=== PATIENT | female | born 1990 | race African-American/Black ===

== ENCOUNTER 2019-03-14 09:00 | Inpatient (IN) | payer BC, OTHER ==
[~2019-03-14 09:00] MED LIST: CITRIC ACID/SODIUM CITRATE 30 ML UNIT-DOSE CUP PO ONE; ELECTROLYTE-148 SOLN 1,000 ML IV SCH
[2019-03-14 09:51] LABS: BASO % 0.3 % (0-2.0); EOS % 0.8 % (0-4.5); HEMATOCRIT 31.7 % (32.4-45.2); HEMOGLOBIN 10.3 GM/dL (10.7-15.3); LYMPH % 23.5 % (8-40); MCH 26.8 pg (25.7-33.7); MCHC 32.6 g/dl (32.0-36.0); MEAN CELL VOLUME 82.1 fl (80-96); MEAN PLT VOLUME 8.6 fl (7.5-11.1); MONO % 6.4 % (3.8-10.2); RBC 3.86 M/mm3 (3.60-5.2); RDW 14.5 % (11.6-15.6)
[2019-03-14 09:59] VITALS: BMI 28.3
[2019-03-14 10:04] LABS: INR 0.97 (0.83-1.09); PROTHROMBIN TIME (PATIENT) 11.5 SEC (9.7-13.0)
[2019-03-14 10:07] LABS: ACTIVATED PTT 26.4 SECONDS (25.2-36.5)
[2019-03-14 10:25] LABS: BLOOD UREA NITROGEN 7.6 mg/dL (7-18); CALCIUM 9.1 mg/dL (8.5-10.1); CREATININE 0.5 mg/dL (0.55-1.3); POTASSIUM 4.1 mmol/L (3.5-5.1)
[2019-03-14 10:29] LABS: PLATELET COUNT 282 K/MM3 (134-434)
--- NOTE | 2019-03-14 10:45 | HP ---
Past Medical History - Admission History of Present Illness: 28 yo @ 37 3/7 wks by first trimester ultrasound, EDC 04/01/2019 complicated by: History of Myomectomy - for delivery between 37 to 38 6/7 wks by ACOG guidelines and MFM recommendation Patient presents for primary CD. She reports movement, denies leakage of fluid, vaginal bleeding or contractions. History Source: Patient Limitations to Obtaining History: No Limitations - Past Medical History Cardiovascular: No: HTN Pulmonary: No: Asthma ...: 4 ...Para: 0 ...Term: 0 ...: 0 ...Spon : 0 ...Induced : 3 ...Multiple Gestation: 0 ...EDC by Sono: 04/01/19 Heme/Onc: No: Anemia - Past Surgical History Hx Myomectomy: Yes Hx Transabdominal Cerclage: No - Smoking History Smoking history: Never smoked Have you smoked in the past 12 months: No - Alcohol/Substance Use Hx Alcohol Use: No History of Substance Use: reports: None - Social History History of Recent Travel: No Home Medications - Allergies Allergies/Adverse Reactions: Allergies Allergy/AdvReac Type Severity Reaction Status Date / Time No Known Drug Allergies Allergy Verified 03/14/19 10:08 - Home Medications Home Medications: Ambulatory Orders Vit/Iron Fum/Folic AC [ Tablet] 1 tab PO DAILY 03/14/19 Family Disease History - Family Disease History Family History: Denies Review of Systems - Review of Systems Constitutional: reports: No Symptoms Cardiovascular: reports: No Symptoms Respiratory: reports: No Symptoms Gastrointestinal: reports: No Symptoms Genitourinary: reports: No Symptoms Musculoskeletal: reports: No Symptoms Integumentary: reports: No Symptoms Neurological: reports: No Symptoms Endocrine: reports: No Symptoms Hematology/Lymphatic: reports: No Symptoms Physical Exam - Maternity Vital Signs: Vital Signs Temperature 98.3 F 03/14/19 09:00 Pulse Rate 86 03/14/19 09:00 Respiratory Rate 16 03/14/19 09:00 Blood Pressure 116/70 03/14/19 09:00 O2 Sat by Pulse Oximetry (%) Constitutional: Yes: Well Nourished, No Distress, Calm Cardiovascular: Yes: Regular Rate and Rhythm Lungs: Clear to auscultation - Abdominal Exam/OB Number of Fetuses: Single Presentation: Vertex Contractions: No Regularity: Regular Monitor Mode: External Category: I Accelerations: Non-Uniform - Vaginal Exam/OB Vaginal Bleediing: No - Physical Exam Psychiatric: Yes: Alert, Oriented - Labs Lab Results: CBC, BMP 03/14/19 09:31 03/14/19 09:31 PNL - O positive, antibody negative; RPR NR; HIV neg; HBs Ag neg; HCV neg; Hg Yanira AA; GCT 130; GBS neg; Sequential 1&2 WNL Hemorrhage Risk Assessment - Risk Factors Medium Risk Factors: Yes: Prior , uterine surgery,or multiple laparotomies High Risk Factors: Yes: None Risk Score: 1 Risk Level: Medium Risk Assessment/Plan 28 yo @ 37+ wks for primary CD 1. Admit to L&D Consents reviewed and signed. discussed risks including but not limited to infection, bleeding, damage to surrounding organs such as bowel, bladder; injury to . Reviewed importance of future childbearing, need to wait at least 1 year for next ; risk of placental attachment issues in next . 2. Routine labs reviewed 3. GBS neg 4. Ancef paving stone installer to OR 5. Will proceed to OR
[2019-03-14] MEDS ORDERED: ePHEDrine SULFATE 50 MG/1 ML AMPULE ONE (10:58)
[2019-03-14] MEDS ORDERED: morphine SULFATE/PF 0.5 MG/ML (2cc Syringe - QUVA) ONE (10:58)
[2019-03-14] MEDS ORDERED: TUBERCULIN PPD 5 TU/0.1ML SYRINGE (IN PATIENT USE ONLY) ID ONE (11:00)
[2019-03-14] MEDS: ELECTROLYTE-148 SOLN 1,000 ML IV SCH (11:05)
[2019-03-14] MEDS ORDERED: OXYTOCIN 10 UNITS/ML VIAL ONE (11:18)
[2019-03-14] MEDS ORDERED: ceFAZolin SODIUM 1 GM VIAL ONE (11:20)
[2019-03-14] MEDS ORDERED: OXYTOCIN 20 UNITS in 0.9% NS 20 UNIT/1,000 ML INFUS.BAG IV ONE (11:33)
[2019-03-14] MEDS ORDERED: BENZOCAINE 28 GM HEMORRHOIDAL OINTMENT TP PRN (12:22)
[2019-03-14] MEDS ORDERED: WITCH HAZEL 50% (TUCKS) 40 PAD/JAR PAD TP PRN (12:22)
[2019-03-14] MEDS ORDERED: METHYLERGONOVINE MALEATE 0.2 MG/1 ML AMP IM PRN (12:22)
[2019-03-14] MEDS ORDERED: SENNOSIDES/DOCUSATE COMBO (SENNA PLUS) TABLET (UD) PO PRN (12:22)
[2019-03-14] MEDS ORDERED: BENZOCAINE 20% 57 GM BOTTLE TP PRN (12:22)
[2019-03-14] MEDS: OXYTOCIN 20 UNITS in 0.9% NS 20 UNIT/1,000 ML INFUS.BAG IV SCH (12:30)
--- NOTE | 2019-03-14 12:31 | PN ---
"Delivery - Delivery Section: Primary EBL (cc): 600 Delivery, Single - Condition of Infant Gender: Female - 1 Minute Total Score: 9 5 Minutes Total Score: 9 - Feeding Plan Initial Plan: Exclusive throughout hospitalization Remarks - Remarks Remarks: Surgeon: Yasmany | Assist: Kirt | Anesthesia: Cali Findings: female , transverse position, 9,9; wt 5 lb 6 oz; 18 inches ; normal tubes and ovaries bilaterally Surgery: Primary CD via pfannensteil incision EBL: 600 | UOP : 200 | IVF : 1200 Dictation: [id number]"
[2019-03-14] MEDS ORDERED: ONDANSETRON 4 MG/2 ML VIAL IVPUSH PRN (12:38)
[2019-03-14 13:52] LABS: ARTERIAL BLD GAS O2 SATURATION 29.2 % (95-98); ARTERIAL BLOOD GAS BASE EXCESS -7.6 meq/l (-2-2); ARTERIAL BLOOD GAS PCO2 67.5 mmHg (35-45)
[2019-03-14 14:00] LABS: VENOUS PC02 50.4 mmHg (41-51)
[2019-03-14 14:01] LABS: VENOUS PH 7.26 (7.31-7.41)
[2019-03-14 14:04] LABS: ARTERIAL BLOOD GAS PO2 21.6 mmHg (80-105)
[2019-03-14 14:05] LABS: ARTERIAL BLOOD GAS pH 7.16 (7.35-7.45)
[2019-03-14] MEDS: IBUPROFEN 800 MG/8 ML IJ IVPB PRN (15:12)
--- NOTE | 2019-03-14 18:33 | OP ---
DATE OF OPERATION: 03/14/2019 ATTENDING PHYSICIAN RESPONSIBLE FOR SIGNING REPORT: Joanie Jade MD PREOPERATIVE DIAGNOSES: Intrauterine , 37+ weeks; prior myomectomy; transverse presentation. POSTOPERATIVE DIAGNOSES: Intrauterine , 37+ weeks; prior myomectomy; transverse presentation. SURGERY: Primary low transverse delivery via Pfannenstiel skin incision. SURGEON: Joanie Jade MD SPECIALTY PERSON: Polo Moralez MD ANESTHESIA: Spinal, Sadiq Cali DO. ESTIMATED BLOOD LOSS: 600. URINE OUTPUT: 200. INTRAVENOUS FLUIDS GIVEN: 1200. FINDINGS: Female in transverse position, Apgars 9 and 9, weight 5 pounds 6 ounces, 18 inches. Normal tubes and ovaries bilaterally. INDICATION: Patient is a 28-year-old, 3, para 0, with history of prior myomectomy with recommendation for delivery at 37 to 38-6/7 weeks according to ACOG guidelines and as per [facility] recommendation. She was counseled regarding risks including infection, bleeding, damage to surrounding organs such as bowel, bladder, or injury to . She expressed understanding, was brought to the operating room. DESCRIPTION OF PROCEDURE: When anesthesia was found to be adequate, the patient was prepped and draped in normal sterile fashion, placed in dorsal supine position with leftward tilt. An approximately 11-cm skin incision was made along the previous myomectomy scar and carried down to the underlying rectus muscle using the Lopez scissors. The fascia was next in the midline, extended laterally using the Lopez scissors. The inferior portion of the fascial incision was tented up using Hayley clamps, dissected off the underlying rectus muscle using Lopez scissors. Attention was brought to the superior portion where, in a similar fashion, was tented up using Hayley clamps and dissected off the underlying rectus muscles using Lopez scissors. The rectus muscles were midline sharply using the knife, and the peritoneum was entered sharply using Metzenbaum scissors. The peritoneal incision was extended superiorly and inferiorly using the Metzenbaum scissors. The palpation of the uterus revealed no development of a lower uterine segment. The vesicouterine peritoneum was identified and entered sharply, and the bladder flap was created digitally. The hysterotomy was made with the knife and extended superolaterally using the Lopez scissors. Amniotomy was performed. Copious amount of clear fluid was noted. The was palpated to be in a transverse position and was verted to cephalic presentation. Vacuum assistance was required for proper delivery of the head. The head was delivered without atraumatically, followed by shoulders and body without difficulty. Cord was clamped and cut. Cord blood and cord gases were collected and sent. The infant was handed to waiting NICU staff present for delivery. The placenta was delivered. The uterus was cleared of all clot and debris. The uterus was closed using 0 Biosyn in running layer. Second layer was an imbricating layer. Gutters were cleared of all clot and debris, and the bilateral tubes and ovaries were noted to be normal appearing. The peritoneum was closed using 2-0 Biosyn in running fashion. The rectus muscles were closed using 0 Biosyn in an interrupted fashion. The fascia wasreapproximated using 0 Vicryl in running fashion. The subcutaneous fat was closed using 0 Vicryl in a running fashion. The skin was reapproximated using 3-0 Vicryl. The patient tolerated the procedure well. Estimated blood loss was 600 mL. Patient was brought to recovery room in stable condition. Adrianne [id number] MTDD
[2019-03-15] MEDS: IBUPROFEN 800 MG/8 ML IJ IVPB PRN (06:46)
--- NOTE | 2019-03-15 07:13 | PN ---
Post Progress Note - Subjective Subjective: Patient without acute complaints. Tolerating clears, without complaints of nausea or vomiting. No ambulation yet. Denies fevers or chills. without difficulty Pain well controlled Tan removed this AM, no voiding yet. Denies flatus. Post Day: 1 Type of Delivery: Primary C/S Vital Signs: Vital Signs Temperature 97.8 F 03/15/19 06:00 Pulse Rate 81 03/15/19 06:00 Respiratory Rate 20 03/15/19 06:00 Blood Pressure 106/63 03/15/19 06:00 O2 Sat by Pulse Oximetry (%) 100 03/14/19 14:00 Breast Exam: Yes: Soft Uterus: Yes: Fundus Firm, Fundus below umbilicus Incision: Yes: Dressing dry and intact Abdomen/GI: Yes: Abdomen soft, Tender (mild incisional). No: Abdominal Distention, Passing flatus Lochia: Yes: Rubra Lochia, amount: Small Extremities: Yes: Calves non-tender. No: Edema Activity: Ambulating - Labs Labs: CBC WBC 13.0 K/mm3 (4.0-10.0) H 03/14/19 09:31 RBC 3.86 M/mm3 (3.60-5.2) 03/14/19 09:31 Hgb 10.3 GM/dL (10.7-15.3) L 03/14/19 09:31 Hct 31.7 % (32.4-45.2) L 03/14/19 09:31 MCV 82.1 fl (80-96) 03/14/19 09:31 MCH 26.8 pg (25.7-33.7) 03/14/19 09:31 MCHC 32.6 g/dl (32.0-36.0) 03/14/19 09:31 RDW 14.5 % (11.6-15.6) D 03/14/19 09:31 Plt Count 282 K/MM3 (134-434) 03/14/19 09:31 MPV 8.6 fl (7.5-11.1) 03/14/19 09:31 Absolute Neuts (auto) 9.0 K/mm3 (1.5-8.0) H 03/14/19 09:31 Neutrophils % 69.0 % (42.8-82.8) D 03/14/19 09:31 Lymphocytes % 23.5 % (8-40) D 03/14/19 09:31 Monocytes % 6.4 % (3.8-10.2) 03/14/19 09:31 Eosinophils % 0.8 % (0-4.5) 03/14/19 09:31 Basophils % 0.3 % (0-2.0) 03/14/19 09:31 Nucleated RBC % 0 % (0-0) 03/14/19 09:31 Assessment/Plan 28 yo POD # 1 s/p primary CD, afebrile, vital signs stable, doing well 1. Continue routine postoperative care. 2. Follow up AM CBC 3. Rh positive status, no rhogam indicated. 4. Encourage ambulation and incentive spirometer use 5. Continue oral pain medication 6. Anticipate discharge home postoperative day #3 or #4
[2019-03-15 08:13] LABS: BASO % 0.3 % (0-2.0); EOS % 0.4 % (0-4.5); HEMATOCRIT 29.1 % (32.4-45.2); HEMOGLOBIN 9.3 GM/dL (10.7-15.3); LYMPH % 15.3 % (8-40); MCH 26.3 pg (25.7-33.7); MCHC 31.8 g/dl (32.0-36.0); MEAN CELL VOLUME 82.7 fl (80-96); MEAN PLT VOLUME 8.8 fl (7.5-11.1); MONO % 6.3 % (3.8-10.2); NEUT % 77.7 % (42.8-82.8); PLATELET COUNT 237 K/MM3 (134-434); RBC 3.52 M/mm3 (3.60-5.2); RDW 14.8 % (11.6-15.6); WHITE BLOOD COUNT 12.2 K/mm3 (4.0-10.0)
[2019-03-15] MEDS: ENOXAPARIN NA (PORCINE) 40 MG/0.4 ML DISP.SYRIN SQ SCH (09:28)
[2019-03-15] MEDS: PRENATAL VITAMINS W/ FOLIC ACID TABLET (FP) PO SCH (09:28)
[2019-03-15] MEDS ORDERED: BISACODYL 10 MG SUPP.RECT RC PRN (12:22)
--- NOTE | 2019-03-15 15:56 | PN ---
Progress Note, Physician Chief Complaint: s/p c section History of Present Illness: under spinal anesthesia post op day one with duramorph for post op pain control - Current Medication List Current Medications: Active Medications Acetaminophen (Tylenol -) 650 mg PO Q4H PRN PRN Reason: FEVER Benzocaine (Americaine 20% [place] -) 1 spray TP PRN PRN PRN Reason: Pain - Topical Benzocaine (Americaine Ointment -) 1 applic TP PRN PRN PRN Reason: Pain - Topical Bisacodyl (Dulcolax Suppository -) 10 mg RC PRN PRN PRN Reason: CONSTIPATION Diphenhydramine HCl (Benadryl Injection -) 25 mg IVPUSH Q4H PRN PRN Reason: Pruritis Enoxaparin Sodium (Lovenox -) 40 mg SQ DAILY [facility] Last Admin: 03/15/19 09:28 Dose: 40 mg Parenteral Electrolytes (Plasma-Lyte 148 -) 1,000 mls @ 125 mls/hr IV ASDIR [facility] Last Admin: 03/14/19 11:05 Dose: 125 mls/hr Oxytocin/Sodium Chloride (Normal Saline+20 Units Oxytocin -) 20 unit in 1,000 mls @ 125 mls/hr IV ASDIR [facility] Last Admin: 03/14/19 12:30 Dose: 125 mls/hr Ibuprofen (Motrin -) 600 mg PO Q4H PRN PRN Reason: PAIN LEVEL 1 - 3 Ibuprofen (Caldolor Injection -) 800 mg IVPB Q8H PRN PRN Reason: PAIN LEVEL 1-5 Last Admin: 03/15/19 06:46 Dose: 800 mg Methylergonovine Maleate (Methergine Injection -) 0.2 mg IM Q4H PRN PRN Reason: Excessive Bleeding (L&D) Ondansetron HCl (Zofran Injection) 4 mg IVPUSH Q4H PRN PRN Reason: NAUSEA Oxycodone HCl (Roxicodone -) 5 mg PO Q4H PRN PRN Reason: PAIN LEVEL 4 - 6 Multivit/Folic Acid/Iron ( Vitamins (Sjr) -) 1 tab PO DAILY [facility] Last Admin: 03/15/19 09:28 Dose: 1 tab Senna/Docusate Sodium (Pericolace -) 2 tablet PO HS PRN PRN Reason: CONSTIPATION Simethicone (Mylicon -) 80 mg PO Q4H PRN PRN Reason: GAS Witch Luly/Glycerin (Tucks Pads -) 1 pad TP PRN PRN PRN Reason: Pain - Topical - Objective Vital Signs: Vital Signs Temperature 97.5 F L 03/15/19 10:00 Pulse Rate 76 03/15/19 10:00 Respiratory Rate 18 03/15/19 15:00 Blood Pressure 102/66 03/15/19 10:00 O2 Sat by Pulse Oximetry (%) 100 03/14/19 14:00 Constitutional: Yes: Well Nourished Cardiovascular: Yes: WNL Respiratory: Yes: WNL Gastrointestinal: Yes: WNL Labs: CBC, BMP 03/15/19 06:00 03/14/19 09:31 INR, PTT INR 0.97 (0.83-1.09) 03/14/19 09:31 Assessment/Plan No adverse effects of anesthetic, pain controlled, dept of anesthesia hinojosa sign off care at this time
[2019-03-15] MEDS: oxyCODONE HCL 5 MG TABLET PO PRN ×2 (16:13→22:15)
[2019-03-15] MEDS: IBUPROFEN 600 MG TABLET (FP) PO PRN ×2 (16:13→22:14)
[2019-03-15] MEDS: SIMETHICONE 80 MG TAB.CHEW (FP) PO PRN ×2 (16:13→22:15)
[2019-03-15] MEDS: ACETAMINOPHEN 325 MG TABLET (FP) PO PRN ×2 (16:14→22:15)
[2019-03-15] MEDS: ELECTROLYTE-148 SOLN 1,000 ML IV SCH (21:17)
[2019-03-15] MEDS: OXYTOCIN 20 UNITS in 0.9% NS 20 UNIT/1,000 ML INFUS.BAG IV SCH (21:17)
[2019-03-16] MEDS: IBUPROFEN 600 MG TABLET (FP) PO PRN ×2 (06:18→12:04)
[2019-03-16] MEDS: SIMETHICONE 80 MG TAB.CHEW (FP) PO PRN ×3 (06:18→23:36)
[2019-03-16] MEDS: ACETAMINOPHEN 325 MG TABLET (FP) PO PRN ×3 (06:18→23:37)
[2019-03-16] MEDS: oxyCODONE HCL 5 MG TABLET PO PRN ×3 (06:18→23:37)
--- NOTE | 2019-03-16 07:55 | PN ---
Post Progress Note - Subjective Subjective: Patient without acute complaints. Reports tolerating oral intake without nausea or vomiting. Ambulating without dizziness. Denies fevers or chills. Pain well controlled with oral pain medication. Pumping/breast feeding without issue. Passing flatus and BM. Post Day: 2 Type of Delivery: Primary C/S Vital Signs: Vital Signs Temperature 98.4 F 03/15/19 22:00 Pulse Rate 79 03/15/19 22:00 Respiratory Rate 18 03/15/19 22:00 Blood Pressure 120/64 03/15/19 22:00 O2 Sat by Pulse Oximetry (%) 100 03/14/19 14:00 Breast Exam: Yes: Soft Uterus: Yes: Fundus Firm, Fundus below umbilicus Incision: Yes: Sutures intact Abdomen/GI: Yes: Abdomen soft Lochia: Yes: Rubra Lochia, amount: Small Extremities: Yes: Calves non-tender Perineum: Yes: Intact Activity: Ambulating - Labs Labs: CBC WBC 12.2 K/mm3 (4.0-10.0) H 03/15/19 06:00 RBC 3.52 M/mm3 (3.60-5.2) L 03/15/19 06:00 Hgb 9.3 GM/dL (10.7-15.3) L 03/15/19 06:00 Hct 29.1 % (32.4-45.2) L 03/15/19 06:00 MCV 82.7 fl (80-96) 03/15/19 06:00 MCH 26.3 pg (25.7-33.7) 03/15/19 06:00 MCHC 31.8 g/dl (32.0-36.0) L 03/15/19 06:00 RDW 14.8 % (11.6-15.6) 03/15/19 06:00 Plt Count 237 K/MM3 (134-434) 03/15/19 06:00 MPV 8.8 fl (7.5-11.1) 03/15/19 06:00 Absolute Neuts (auto) 9.5 K/mm3 (1.5-8.0) H 03/15/19 06:00 Neutrophils % 77.7 % (42.8-82.8) 03/15/19 06:00 Lymphocytes % 15.3 % (8-40) D 03/15/19 06:00 Monocytes % 6.3 % (3.8-10.2) 03/15/19 06:00 Eosinophils % 0.4 % (0-4.5) 03/15/19 06:00 Basophils % 0.3 % (0-2.0) 03/15/19 06:00 Nucleated RBC % 0 % (0-0) 03/15/19 06:00 Assessment/Plan POD#2 s/p primary LTC/S doing well, stable, afebrile. Asymptomatic for anemia. Post op care reviewed. Continue routine care. Ambulation encouraged Advance diet as tolerated.
[2019-03-16] MEDS: PRENATAL VITAMINS W/ FOLIC ACID TABLET (FP) PO SCH (09:17)
[2019-03-16] MEDS: ENOXAPARIN NA (PORCINE) 40 MG/0.4 ML DISP.SYRIN SQ SCH (09:17)
[2019-03-17] MEDS: ACETAMINOPHEN 325 MG TABLET (FP) PO PRN ×3 (05:26→21:49)
[2019-03-17] MEDS: SIMETHICONE 80 MG TAB.CHEW (FP) PO PRN ×4 (05:26→21:50)
[2019-03-17] MEDS: oxyCODONE HCL 5 MG TABLET PO PRN ×2 (05:27→11:18)
[2019-03-17 08:37] LABS: BASO % 0.3 % (0-2.0); EOS % 1.3 % (0-4.5); HEMATOCRIT 29.7 % (32.4-45.2); HEMOGLOBIN 9.6 GM/dL (10.7-15.3); LYMPH % 25.2 % (8-40); MCH 26.7 pg (25.7-33.7); MCHC 32.3 g/dl (32.0-36.0); MEAN CELL VOLUME 82.6 fl (80-96); MEAN PLT VOLUME 8.7 fl (7.5-11.1); MONO % 6.9 % (3.8-10.2); NEUT % 66.3 % (42.8-82.8); RDW 14.8 % (11.6-15.6); WHITE BLOOD COUNT 11.8 K/mm3 (4.0-10.0)
[2019-03-17 09:12] LABS: PLATELET COUNT 296 K/MM3 (134-434)
--- NOTE | 2019-03-17 09:21 | PN ---
Post Progress Note - Subjective Subjective: Patient without acute complaints. Reports tolerating oral intake without nausea or vomiting. Ambulating without dizziness. Denies fevers or chills. Pain well controlled with oral pain medication. without difficulty. Passing flatus. Type of Delivery: Primary C/S Vital Signs: Vital Signs Temperature 98.5 F 03/16/19 21:15 Pulse Rate 76 03/16/19 21:15 Respiratory Rate 20 03/16/19 21:15 Blood Pressure 129/76 03/16/19 21:15 O2 Sat by Pulse Oximetry (%) 100 03/14/19 14:00 Breast Exam: Yes: Soft Uterus: Yes: Fundus Firm, Fundus below umbilicus Incision: Yes: Sutures intact. No: Redness, Oozing Abdomen/GI: Yes: Abdomen soft, Abdominal Distention (mlid soft), Tender (mild incisional), Passing flatus, Tolerating PO Lochia: Yes: Rubra Lochia, amount: Small Extremities: Yes: Calves non-tender. No: Edema Activity: Ambulating - Labs Labs: CBC WBC 11.8 K/mm3 (4.0-10.0) H 03/17/19 06:48 RBC 3.60 M/mm3 (3.60-5.2) 03/17/19 06:48 Hgb 9.6 GM/dL (10.7-15.3) L 03/17/19 06:48 Hct 29.7 % (32.4-45.2) L 03/17/19 06:48 MCV 82.6 fl (80-96) 03/17/19 06:48 MCH 26.7 pg (25.7-33.7) 03/17/19 06:48 MCHC 32.3 g/dl (32.0-36.0) 03/17/19 06:48 RDW 14.8 % (11.6-15.6) 03/17/19 06:48 Plt Count 296 K/MM3 (134-434) D 03/17/19 06:48 MPV 8.7 fl (7.5-11.1) 03/17/19 06:48 Absolute Neuts (auto) 7.8 K/mm3 (1.5-8.0) 03/17/19 06:48 Neutrophils % 66.3 % (42.8-82.8) 03/17/19 06:48 Lymphocytes % 25.2 % (8-40) D 03/17/19 06:48 Monocytes % 6.9 % (3.8-10.2) 03/17/19 06:48 Eosinophils % 1.3 % (0-4.5) D 03/17/19 06:48 Basophils % 0.3 % (0-2.0) 03/17/19 06:48 Nucleated RBC % 0 % (0-0) 03/17/19 06:48 Assessment/Plan 28 yo POD # 3 s/p primary CD, afebrile, vital signs stable, doing well 1. Continue routine postoperative care. 2. Encourage ambulation and incentive spirometer use 3. Continue oral pain medication 4. Anticipate discharge home postoperative day #4
[2019-03-17] MEDS: ENOXAPARIN NA (PORCINE) 40 MG/0.4 ML DISP.SYRIN SQ SCH (11:12)
[2019-03-17] MEDS: PRENATAL VITAMINS W/ FOLIC ACID TABLET (FP) PO SCH (11:12)
[2019-03-17] MEDS: IBUPROFEN 600 MG TABLET (FP) PO PRN (21:49)
--- NOTE | 2019-03-18 08:12 | DS ---
Physical Exam-ECG TECHNICIAN Vital Signs: Vital Signs Temperature 98.6 F 03/17/19 21:46 Pulse Rate 69 03/17/19 21:46 Respiratory Rate 20 03/17/19 21:46 Blood Pressure 144/75 03/17/19 21:46 O2 Sat by Pulse Oximetry (%) 100 03/14/19 14:00 Constitutional: Yes: Well Nourished, No Distress, Calm Eyes: Yes: WNL, Conjunctiva Clear, EOM Intact HENT: Yes: WNL, Atraumatic, Normocephalic Neck: Yes: WNL, Supple, Trachea Midline Cardiovascular: Yes: WNL, Regular Rate and Rhythm Respiratory: Yes: WNL, Regular, CTA Bilaterally Gastrointestinal: Yes: WNL ...Rectal Exam: Yes: WNL Renal/: Yes: WNL ....Post : Yes: Uterus firm, Uterus non-tender, Slight lochia rubra Breast(s): Yes: WNL Musculoskeletal: Yes: WNL Extremities: Yes: WNL Edema: No Integumentary: Yes: WNL Wound/Incision: Yes: Clean/Dry, Well Approximated, Sutures Intact Neurological: Yes: WNL, Alert, Oriented ...Motor Strength: WNL Psychiatric: Yes: WNL, Alert, Oriented Labs: CBC, BMP 03/17/19 06:48 03/14/19 09:31 Delivery - Delivery Section: Primary, Low Flap Transverse Type of Anesthesia: Spinal Episiotomy/Laceration: None EBL (cc): 600 Delivery, Single - Stages of Labor Date of Delivery: 03/14/19 Time of Delivery: 11:43 Time Placenta Delivered: 11:45 Placenta: Yes: Expressed - Condition of School Inspector/Toll Test Worker Present: Yes Name: Humza Beth Infant Gender: Female Weight: 5 lb 6 oz Position: Right, OT Total Hours ROM (Hrs/Mins): 0/3 - 1 Minute Total Score: 9 5 Minutes Total Score: 9 - [place] Feeding Plan Initial Plan: Exclusive throughout hospitalization Discharge Summary Reason For Visit: Procedures: Principal: primary LST c/s Hospital Course: uneventful Condition: Good - Instructions Diet, Activity, Other Instructions: regular diet, follow up office 1 week, if fever, pain, heavy vaginal bleeding call Referrals: Joanie Jade MD [Staff Physician] - - Home Medications Comprehensive Discharge Medication List: Ambulatory Orders Vit/Iron Fum/Folic AC [ Tablet] 1 tab PO DAILY 03/14/19 Ibuprofen [Motrin -] 600 mg PO QID #28 tablet 03/17/19
[2019-03-18] MEDS: ENOXAPARIN NA (PORCINE) 40 MG/0.4 ML DISP.SYRIN SQ SCH (10:07)
[2019-03-18] MEDS: IBUPROFEN 600 MG TABLET (FP) PO PRN (10:09)
[2019-03-18] MEDS: PRENATAL VITAMINS W/ FOLIC ACID TABLET (FP) PO SCH (10:09)
[2019-03-18] MEDS: ACETAMINOPHEN 325 MG TABLET (FP) PO PRN (10:12)
[2019-03-18 11:50] VITALS: BP 130/81; PULSE 66; TEMP 98.1
== END 2019-03-18 11:25 | disposition home or self-care (01) | DRG 787 ==
LOC: JLDR 09:00 → J3W 14:52
PROVIDERS: ADMIT Obstetrics & Gynecology; ATTEND Obstetrics & Gynecology
PROC: 10D00Z1 Extraction of Products of Conception, Low, Open Approach (ICD-10-PCS; principal; 2019-03-14)
DX: O34.29 Maternal care due to uterine scar from other previous surgery (principal); O36.0930 Maternal care for other rhesus isoimmunization, third trimester, not applicable or unspecified; Z3A.37 37 weeks gestation of pregnancy; Z37.0 Single live birth
CPT/HCPCS: 36415; 36600; 80048; 82803; 82962; 85025; 85610; 85730; 86593; 86803; 86850; 86900; 86901; 87389; 94010

== ENCOUNTER 2023-10-26 06:05 | Inpatient (IN) | payer OTHER ==
[2023-10-26] MEDS ORDERED: CITRIC ACID/SODIUM CITRATE 30 ML UNIT-DOSE CUP PO ONE (07:00)
[2023-10-26] MEDS ORDERED: ELECTROLYTE-148 SOLN 500 ML IV ONE ×2 (07:00→07:30)
[2023-10-26 07:45] VITALS: BMI 31.1
[2023-10-26] MEDS ORDERED: morphine SULFATE/PF 1 MG/2 ML (2cc Syringe - QUVA) EP ONE (09:17)
[2023-10-26] MEDS ORDERED: ONDANSETRON 4 MG/2 ML VIAL IVPUSH PRN (09:17)
[2023-10-26] MEDS ORDERED: SODIUM CHLORIDE 0.9% P/F 10 ML VIAL IJ ONE (09:25)
[2023-10-26] MEDS ORDERED: ceFAZolin SODIUM 1 GM VIAL ONE (09:25)
[2023-10-26] MEDS ORDERED: PHENYLEPHRINE HCL 10 MG/1 ML SINGLE DOSE VIAL ONE (09:34)
[2023-10-26] MEDS ORDERED: ONDANSETRON 4 MG/2 ML VIAL ONE (10:18)
[2023-10-26] MEDS ORDERED: OXYTOCIN 10 UNITS/ML VIAL ONE (10:19)
[2023-10-26] MEDS ORDERED: MIDAZOLAM HCL 2 MG/2 ML SINGLE DOSE VIAL ONE (10:27)
[2023-10-26] MEDS ORDERED: WITCH HAZEL 50% (TUCKS) 40 PAD/JAR PAD TP PRN (11:12)
[2023-10-26] MEDS ORDERED: BENZOCAINE 28 GM HEMORRHOIDAL OINTMENT TP PRN (11:12)
[2023-10-26] MEDS ORDERED: METHYLERGONOVINE MALEATE 0.2 MG/1 ML AMP IM PRN (11:12)
[2023-10-26] MEDS ORDERED: BENZOCAINE 20% 57 GM BOTTLE TP PRN (11:12)
[2023-10-26] MEDS ORDERED: IBUPROFEN 800 MG/8 ML IJ IVPB PRN (11:12)
[2023-10-26 11:29] LABS: CORD HCO3 21.2 mmHg (20-29); CORD PCO2 52.5 mmHg (30-78); CORD pH 7.224 (7.14-7.44)
[2023-10-26 11:32] LABS: CORD HCO3 24.7 mmHg (20-29); CORD PCO2 69.3 mmHg (30-78); CORD pH 7.169 (7.14-7.44)
[2023-10-26] MEDS: OXYTOCIN 20 UNITS in 0.9% NS 20 UNIT/1,000 ML INFUS.BAG IV SCH (12:30)
[2023-10-26] MEDS ORDERED: oxyCODONE HCL 5 MG TABLET PO PRN (23:12)
[2023-10-27] MEDS: OXYTOCIN 20 UNITS in 0.9% NS 20 UNIT/1,000 ML INFUS.BAG IV SCH ×2 (00:09→11:31)
[2023-10-27 08:37] LABS: BASO % 0.3 % (0-2.0); EOS % 0.4 % (0-4.5); HEMATOCRIT 28.3 % (32.4-45.2); HEMOGLOBIN 8.8 GM/dL (10.7-15.3); LYMPH % 18.7 % (8-40); MCH 25.2 pg (25.7-33.7); MCHC 31.2 g/dl (32.0-36.0); MEAN CELL VOLUME 80.8 fl (80-96); MEAN PLT VOLUME 8.1 fl (7.5-11.1); MONO % 6.5 % (3.8-10.2); NEUT % 74.1 % (42.8-82.8); PLATELET COUNT 257 10^3/uL (134-434); RBC 3.51 M/mm3 (3.60-5.2); RDW 16.6 % (11.6-15.6); WHITE BLOOD COUNT 12.9 K/mm3 (4.0-10.0)
[2023-10-27] MEDS: PRENATAL VITAMINS W/ FOLIC ACID TABLET (FP) PO SCH (09:26)
[2023-10-27] MEDS: IBUPROFEN 600 MG TABLET (FP) PO PRN ×3 (09:27→22:23)
[2023-10-27] MEDS: SIMETHICONE 80 MG TAB.CHEW (FP) PO PRN ×2 (09:27→17:47)
[2023-10-27] MEDS ORDERED: ENOXAPARIN NA (PORCINE) 40 MG/0.4 ML DISP.SYRIN SQ ONE (17:05)
[2023-10-27] MEDS: ACETAMINOPHEN 325 MG TABLET (FP) PO PRN (20:35)
[2023-10-28] MEDS: BISACODYL 10 MG SUPP.RECT RC PRN ×2 (03:01→09:52)
[2023-10-28] MEDS: IBUPROFEN 600 MG TABLET (FP) PO PRN ×3 (03:02→21:28)
[2023-10-28] MEDS: SIMETHICONE 80 MG TAB.CHEW (FP) PO PRN ×3 (06:17→21:27)
[2023-10-28] MEDS: ACETAMINOPHEN 325 MG TABLET (FP) PO PRN (06:17)
[2023-10-28] MEDS: ENOXAPARIN NA (PORCINE) 40 MG/0.4 ML DISP.SYRIN SQ SCH (09:49)
[2023-10-28] MEDS: PRENATAL VITAMINS W/ FOLIC ACID TABLET (FP) PO SCH (09:49)
[2023-10-28 11:57] VITALS: RESP 18
[2023-10-28] MEDS: oxyCODONE HCL 5 MG TABLET PO PRN (15:17)
[2023-10-28] MEDS: FERROUS SO4 325 MG TABLET (FP) PO SCH (21:28)
[2023-10-29] MEDS: oxyCODONE HCL 5 MG TABLET PO PRN (08:47)
[2023-10-29] MEDS: SIMETHICONE 80 MG TAB.CHEW (FP) PO PRN ×2 (08:47→12:42)
[2023-10-29 09:08] LABS: BASO % 0.5 % (0-2.0); EOS % 1.3 % (0-4.5); HEMATOCRIT 30.8 % (32.4-45.2); HEMOGLOBIN 9.5 GM/dL (10.7-15.3); MEAN CELL VOLUME 80.6 fl (80-96); MEAN PLT VOLUME 7.7 fl (7.5-11.1); MONO % 4.7 % (3.8-10.2); NEUT % 73.5 % (42.8-82.8); PLATELET COUNT 304 10^3/uL (134-434); RBC 3.82 M/mm3 (3.60-5.2); RDW 16.7 % (11.6-15.6); WHITE BLOOD COUNT 13.1 K/mm3 (4.0-10.0)
[2023-10-29] MEDS: PRENATAL VITAMINS W/ FOLIC ACID TABLET (FP) PO SCH (09:28)
[2023-10-29] MEDS: ENOXAPARIN NA (PORCINE) 40 MG/0.4 ML DISP.SYRIN SQ SCH (09:28)
[2023-10-29] MEDS: FERROUS SO4 325 MG TABLET (FP) PO SCH (09:28)
[2023-10-29] MEDS: IBUPROFEN 600 MG TABLET (FP) PO PRN (12:42)
[2023-10-29 14:18] VITALS: BP 136/80; PULSE 78; TEMP 97.8
== END 2023-10-29 13:15 | disposition home or self-care (01) | DRG 540 ==
LOC: JLDR 06:05 → J3W 13:00
PROVIDERS: ADMIT Obstetrics & Gynecology; ATTEND Obstetrics & Gynecology
PROC: 10D00Z1 Extraction of Products of Conception, Low, Open Approach (ICD-10-PCS; principal; 2023-10-26)
DX: O34.211 Maternal care for low transverse scar from previous cesarean delivery (principal); O99.02 Anemia complicating childbirth; D64.9 Anemia, unspecified; Z3A.38 38 weeks gestation of pregnancy; Z37.0 Single live birth
CPT/HCPCS: 36415; 36600; 82803; 85025; 86850; 86900; 86901; 94010